=== PATIENT | female | born 1955 | race Caucasian/White ===

== ENCOUNTER → 2017-05-04 | Outpatient (CLI) | payer OTHER ==
[2017-05-04 08:32] LABS: ADD MAN DIFF? NO
[2017-05-04 08:41] LABS: BASO # 0.2 x10^3/uL (0.0-0.2); BASO % 2 % (0-3); EOS % 4 % (0-3); HEMOGLOBIN 14.3 g/dL (12.0-15.5); LYMPH % 28 % (24-48); MEAN CORPUSCULAR HEMOGLOBIN 31 pg (25-35); MEAN CORPUSCULAR HGB CONC 33 g/dL (31-37); MEAN CORPUSCULAR VOLUME 92 fL (79-100); MONO % 9 % (0-9); NEUT % 57 % (31-73); PLATELET COUNT 321 x10^3/uL (140-400); RED BLOOD COUNT 4.69 x10^6/uL (3.50-5.40); RED CELL DISTRIBUTION WIDTH 13.6 % (11.5-14.5); WHITE BLOOD COUNT 7.2 x10^3/uL (4.0-11.0)
[2017-05-04 08:42] LABS: BILIRUBIN,URINE NEGATIVE (NEG); GLUCOSE,URINE NEGATIVE (NEG); NITRITE,URINE NEGATIVE (NEG); PROTEIN,URINE NEGATIVE (NEG-TRACE)
[2017-05-04 09:00] LABS: SQUAMOUS EPITHELIAL CELL,UR FEW /LPF
[2017-05-04 09:01] LABS: BACTERIA,URINE FEW /HPF (0-FEW); RBC,URINE 0 /HPF (0-2); WBC,URINE OCC /HPF (0-4)
[2017-05-04 09:02] LABS: ALBUMIN 3.8 g/dL (3.4-5.0); ALK PHOS 83 U/L (46-116); ALT (SGPT) 30 U/L (14-59); ANION GAP 4 (6-14); AST (SGOT) 19 U/L (15-37); BLOOD UREA NITROGEN 13 mg/dL (7-20); BUN/CREATININE RATIO 22 (6-20); CALCIUM 9.2 mg/dL (8.5-10.1); CARBON DIOXIDE 33 mmol/L (21-32); CHLORIDE 103 mmol/L (98-107); CHOLESTEROL 208 mg/dL (0-200); CREATININE 0.6 mg/dL (0.6-1.0); GFR 101.6; GLUCOSE 94 mg/dL (70-99); HDLC 57 mg/dL (40-60); NON-HDL CHOLESTEROL 151 mg/dL (0-129); POTASSIUM 4.2 mmol/L (3.5-5.1); SODIUM 140 mmol/L (136-145); TOTAL BILIRUBIN 0.3 mg/dL (0.2-1.0); TOTAL PROTEIN 7.5 g/dL (6.4-8.2); TRIGLYCERIDES 89 mg/dL (0-150)
[2017-05-04 09:04] LABS: CHOLESTEROL/HDL RATIO 3.6
== END | disposition home or self-care (01) ==
LOC: LAB 07:59
DX: Z00.00 Encounter for general adult medical examination without abnormal findings (principal); R53.83 Other fatigue; Z11.59 Encounter for screening for other viral diseases
CPT/HCPCS: 36415; 80053; 80061; 81001; 84439; 84443; 85025; 86803

== ENCOUNTER → 2017-06-01 | Outpatient (CLI) | payer OTHER | END | disposition home or self-care (01) | LOC: SPEC 10:42 | DX: D48.5 Neoplasm of uncertain behavior of skin (principal) | CPT/HCPCS: 88304; 88305 ==

== ENCOUNTER → 2017-07-01 | Outpatient (CLI) | payer OTHER ==
[2017-07-01 12:50] LABS: FREE T4 1.21 ng/dL (0.76-1.46)
== END | disposition home or self-care (01) ==
LOC: LAB 11:34
DX: E03.9 Hypothyroidism, unspecified (principal)
CPT/HCPCS: 36415; 84439; 84443

== ENCOUNTER → 2017-08-11 | Outpatient (CLI) | payer OTHER | END | disposition home or self-care (01) | LOC: MAMMO 12:57 | DX: Z12.31 Encounter for screening mammogram for malignant neoplasm of breast (principal) | CPT/HCPCS: 77063; 77067 ==

== ENCOUNTER 2018-01-09 08:31 | Emergency (ER) | payer OTHER ==
[2018-01-09 09:06] LABS: ADD MAN DIFF? NO
[2018-01-09 09:13] LABS: BILIRUBIN,URINE NEGATIVE (NEG); CLARITY,URINE CLEAR; COLOR,URINE YELLOW; GLUCOSE,URINE NEGATIVE (NEG); NITRITE,URINE NEGATIVE (NEG); PROTEIN,URINE NEGATIVE (NEG-TRACE)
[2018-01-09 09:14] LABS: BASO # 0.1 x10^3/uL (0.0-0.2); BASO % 1 % (0-3); EOS # 0.2 x10^3/uL (0.0-0.7); EOS % 3 % (0-3); HEMATOCRIT 41.7 % (36.0-47.0); HEMOGLOBIN 14.1 g/dL (12.0-15.5); LYMPH # 1.6 x10^3/uL (1.0-4.8); LYMPH % 22 % (24-48); MEAN CORPUSCULAR HEMOGLOBIN 31 pg (25-35); MEAN CORPUSCULAR HGB CONC 34 g/dL (31-37); MEAN CORPUSCULAR VOLUME 91 fL (79-100); MONO # 0.7 x10^3/uL (0.0-1.1); MONO % 9 % (0-9); NEUT # 4.8 x10^3uL (1.8-7.7); NEUT % 65 % (31-73); PLATELET COUNT 276 x10^3/uL (140-400); RED BLOOD COUNT 4.56 x10^6/uL (3.50-5.40); RED CELL DISTRIBUTION WIDTH 13.6 % (11.5-14.5); WHITE BLOOD COUNT 7.4 x10^3/uL (4.0-11.0)
[2018-01-09 09:21] LABS: ANION GAP 7 (6-14); BLOOD UREA NITROGEN 22 mg/dL (7-20); CALCIUM 8.9 mg/dL (8.5-10.1); CARBON DIOXIDE 30 mmol/L (21-32); CHLORIDE 103 mmol/L (98-107); CREATININE 0.6 mg/dL (0.6-1.0); GFR 101.3; GLUCOSE 86 mg/dL (70-99); POTASSIUM 4.2 mmol/L (3.5-5.1); SODIUM 140 mmol/L (136-145)
[2018-01-09 09:26] LABS: BACTERIA,URINE FEW /HPF (0-FEW); RBC,URINE OCC /HPF (0-2); SQUAMOUS EPITHELIAL CELL,UR FEW /LPF
[2018-01-09 09:27] LABS: ALBUMIN 3.9 g/dL (3.4-5.0); ALK PHOS 86 U/L (46-116); ALT (SGPT) 30 U/L (14-59); AST (SGOT) 19 U/L (15-37); DIRECT BILIRUBIN 0.1 mg/dL (0.0-0.2); LIPASE 107 U/L (73-393); TOTAL BILIRUBIN 0.5 mg/dL (0.2-1.0); TOTAL PROTEIN 7.4 g/dL (6.4-8.2)
[2018-01-09] MEDS ORDERED: CONTRAST GIVEN. MC (09:45)
[2018-01-09] MEDS: IOHEXOL 300 MG/ML 100ML VIAL. IV (10:13)
== END 2018-01-09 11:03 | disposition home or self-care (01) ==
LOC: ER 08:31
DX: R10.11 Right upper quadrant pain (principal); J45.909 Unspecified asthma, uncomplicated; Z90.49 Acquired absence of other specified parts of digestive tract; Z90.710 Acquired absence of both cervix and uterus; Z88.0 Allergy status to penicillin; Z88.1 Allergy status to other antibiotic agents; Z91.040 Latex allergy status; Z88.8 Allergy status to other drugs, medicaments and biological substances
CPT/HCPCS: 36415; 74177; 76705; 80048; 80076; 81001; 83690; 85025; 87086; 99285-25; Q9967

== ENCOUNTER → 2018-08-15 | Outpatient (CLI) | payer OTHER ==
[2018-01-09 10:30] VITALS: BP 134/77
[~2018-08-15] MED LIST: ALBU2.5V8 IH; ATOR20TA58 PO; CA C1TAB63 PO; CELE200C PO; CHOL500016 PO; DICL100G18 TP; ESCITALOPRAM OX10 MG PO; FLUT1DIS3 IH; GABA-585 PO; GABA300C18 PO; GABA600T PO; HYDR-3164 PO; LORA10TA68 PO; MULT-245 PO; OMEG1CAP6 PO; OXYB10TA PO; OXYC1TAB8 PO; PHEN37.53 PO; TIZA4TAB PO
[2018-08-15 09:11] LABS: HEMATOCRIT 42.5 % (36.0-47.0); HEMOGLOBIN 14.1 g/dL (12.0-15.5); RED BLOOD COUNT 4.64 x10^6/uL (3.50-5.40); RED CELL DISTRIBUTION WIDTH 13.7 % (11.5-14.5); WHITE BLOOD COUNT 7.2 x10^3/uL (4.0-11.0)
[2018-08-15 09:34] LABS: ALBUMIN 3.6 g/dL (3.4-5.0); CALCIUM 9.1 mg/dL (8.5-10.1); CREATININE 0.6 mg/dL (0.6-1.0); GFR 101.3; POTASSIUM 4.1 mmol/L (3.5-5.1); TOTAL BILIRUBIN 0.3 mg/dL (0.2-1.0); TOTAL PROTEIN 7.3 g/dL (6.4-8.2)
[2018-08-15 09:37] LABS: CHOLESTEROL/HDL RATIO 3.8
[2018-08-15 09:40] LABS: FREE T4 1.13 ng/dL (0.76-1.46); THYROID STIM HORMONE (TSH) 3.513 uIU/mL (0.358-3.74)
== END | disposition home or self-care (01) ==
LOC: LAB 08:03
PROVIDERS: ATTEND Nurse Practitioner Family
DX: Z13.228 Encounter for screening for other metabolic disorders (principal); E03.9 Hypothyroidism, unspecified
CPT/HCPCS: 36415; 80053; 80061; 82306; 82607; 82746; 84439; 84443; 85027

== ENCOUNTER 2019-06-12 10:13 | Emergency (ER) | payer OTHER ==
[~2019-06-12] VITALS: Ht 175.3 cm; Wt 140.6 kg
[~2019-06-12 10:13] MED LIST changes: -OXYB10TA PO; +OXYB10TA2 PO; -TIZA4TAB PO; +TIZA4TAB2 PO
[2019-06-12] MEDS ORDERED: IPRATRPIUM/ALBUTEROL 0.5/2.5MG 3 ML NEBU. ONE (10:31)
[2019-06-12] MEDS ORDERED: methylPREDNISolone SOD SUCC PF 125 MG/2 ML VIAL. IM ONE (10:45)
[2019-06-12] MEDS ORDERED: IPRATRPIUM/ALBUTEROL 0.5/2.5MG 3 ML NEBU. NEB ONE (10:45)
[2019-06-12 11:13] VITALS: BP 169/81
--- NOTE | 2019-06-12 11:21 | RAD ---
EXAM: CHEST 2 VIEWS. HISTORY: Cough, asthma. COMPARISON: 06/01/2016. FINDINGS: Frontal and lateral views of the chest are obtained. Linear opacities in the left base are chronic and likely represents scarring. There are no confluent infiltrates. There is no pneumothorax or pleural effusion. The heart is not enlarged. IMPRESSION: 1. Stable left basilar scarring. No confluent infiltrates. Electronically signed by: Melissa Salmeron MD (06/12/2019 11:18 AM) [facility]
[2019-06-12 11:27] LABS: INFLUENZA A PATIENT NEGATIVE (NEGATIVE); INFLUENZA B PATIENT NEGATIVE (NEGATIVE)
--- NOTE | 2019-06-12 11:54 | PHYS DOC ---
Past Medical History Past Medical History: Arthritis, Asthma, Other Additional Past Medical Histor: neuropathy L leg Past Surgical History: Appendectomy, Hysterectomy, Tonsillectomy, Other Additional Past Surgical Histo: back surgeries x 3 Alcohol Use: None Drug Use: None Adult General Chief Complaint Chief Complaint: ASTHMA HPI HPI Patient is a 63 year old female with history of asthma who presents to the ED today complaining of cough, shortness of breath and wheezing, symptoms began 10 days ago. Patient was seen by the PCP last week, was started on breathing treatments and tapered dose of prednisone which she is still on and azithromycin. She states yesterday she is feeling better, she states today she woke up in her symptoms had worsened. Denies any fever. Review of Systems Review of Systems Constitutional: Denies fever or chills [] Eyes: Denies change in visual acuity, redness, or eye pain [] HENT: Denies nasal congestion or sore throat [] Respiratory: Reports cough, wheezing and shortness of breath [] Cardiovascular: No additional information not addressed in HPI [] GI: Denies abdominal pain, nausea, vomiting, bloody stools or diarrhea [] : Denies dysuria or hematuria [] Musculoskeletal: Denies back pain or joint pain [] Integument: Denies rash or skin lesions [] Neurologic: Denies headache, focal weakness or sensory changes [] All other systems were reviewed and found to be within normal limits, except as documented in this note. Current Medications Current Medications Current Medications Medications (Trade) Dose Ordered Sig/Bryan Start Time Stop Time Status Last Admin Dose Admin Albuterol/ Ipratropium (Duoneb) 3 ml 1X ONCE 06/12/19 10:45 06/12/19 10:46 DC Methylprednisolone Sodium Succinate (SOLU-Medrol 125MG VIAL) 125 mg 1X ONCE 06/12/19 10:45 06/12/19 10:46 DC 06/12/19 11:21 125 MG Allergies Allergies Allergies Coded Allergies Type Severity Reaction Last Updated Verified latex Allergy Severe anaphylaxis 11/23/14 Yes Cephalosporins Allergy Intermediate hives 11/23/14 Yes Penicillins Allergy Intermediate HIVES 11/23/14 Yes chlorhexidine Allergy Intermediate rash blistering 01/04/15 Yes Physical Exam Physical Exam Constitutional: Well developed, well nourished, no acute distress, non-toxic appearance. [] HENT: Normocephalic, atraumatic, bilateral external ears normal, oropharynx moist, no oral exudates, nose normal. [] Eyes: PERRLA, EOMI, conjunctiva normal, no discharge. [] Neck: Normal range of motion, no tenderness, supple, no stridor. [] Cardiovascular:Heart rate regular rhythm, no murmur [] Lungs & Thorax: Tight chest, limited air movement. Abdomen: Bowel sounds normal, soft, no tenderness, no masses, no pulsatile masses. [] Skin: Warm, dry, no erythema, no rash. [] Back: No tenderness, no CVA tenderness. [] Extremities: No tenderness, no cyanosis, no clubbing, ROM intact, no edema. [] Neurologic: Alert and oriented X 3, normal motor function, normal sensory function, no focal deficits noted. [] Psychologic: Affect normal, judgement normal, mood normal. [] Current Patient Data Vital Signs Vital Signs Date Time Temp Pulse Resp B/P (MAP) Pulse Ox O2 Delivery O2 Flow Rate FiO2 06/12/19 11:13 98.5 88 16 169/81 (110) 95 Room Air 98.5 Lab Values Laboratory Tests Test 06/12/19 10:38 Influenza Type A Antigen Negative (NEGATIVE) Influenza Type B Antigen Negative (NEGATIVE) EKG EKG [] Radiology/Procedures Radiology/Procedures []PROCEDURE: CHEST PA & LATERAL EXAM: CHEST 2 VIEWS. HISTORY: Cough, asthma. COMPARISON: 06/01/2016. FINDINGS: Frontal and lateral views of the chest are obtained. Linear opacities in the left base are chronic and likely represents scarring. There are no confluent infiltrates. There is no pneumothorax or pleural effusion. The heart is not enlarged. IMPRESSION: 1. Stable left basilar scarring. No confluent infiltrates. Electronically signed by: Melissa Salmeron MD (06/12/2019 11:18 AM) [facility] DICTATED and SIGNED BY: MICHELLE SALMERON MD DATE: 06/12/19 1119 Course & Med Decision Making Course & Med Decision Making Pertinent Labs and Imaging studies reviewed. (See chart for details) This is a 63-year-old female patient presenting to the ED today with cough, shortness of breath, wheezing for 10 days. She is already been seen by the PCP, currently on tapered dose of prednisone and breathing treatments. She completed azithromycin a couple days ago. Chest x-ray interpreted by radiologist as negative for any acute findings. Negative influenza A or B. Patient was given a DuoNeb treatment in the ED as well as Solu-Medrol IM. She reports she is feeling better. She was discharged to home. Encouraged to continue taking the tapered dose of prednisone as well as breathing treatments. O2 sats 95% of room air. Provided return precautions and discharged in stable condition. Dragon Disclaimer Dragon Disclaimer This electronic medical record was generated, in whole or in part, using a voice recognition dictation system. Departure Departure Impression: Primary Impression: Asthma exacerbation Disposition: HOME, SELF-CARE Condition: STABLE Referrals: RED RAHMAN APRN (PCP) follow up with your doctor in 1-2 weeks Patient Instructions: Asthma, Adult, [id number] Additional Instructions: You were seen for asthma exacerbation. Continue using breathing treatments at home as well as taking the tapered dose of prednisone until you complete it. Follow-up with your own doctor in the course of next week. Please come back to the ED at any point symptoms worsen. Scripts Albuterol Sulfate (ALBUTEROL SULFATE NEB SOLN) 1.25 Mg/3 Ml Vial.neb 1 VIAL NEB Q4HRS, #150 ML Prov: BENNY AMEZCUA APRN 06/12/19 Problem Qualifiers Primary Impression: Asthma exacerbation Asthma severity: mild Asthma persistence: intermittent Qualified Codes: J45.21 - Mild intermittent asthma with (acute) exacerbation BENNY AMEZCUA APRN Jun 12, 2019 11:54
[2019-06-12] MEDS ORDERED: ALBU1.25 NEB (12:05)
== END 2019-06-12 12:09 | disposition home or self-care (01) ==
LOC: ER 10:13
DX: J45.21 Mild intermittent asthma with (acute) exacerbation (principal); M19.90 Unspecified osteoarthritis, unspecified site; G90.09 Other idiopathic peripheral autonomic neuropathy; Z90.89 Acquired absence of other organs; Z90.710 Acquired absence of both cervix and uterus; Z88.0 Allergy status to penicillin; Z91.040 Latex allergy status; Z88.1 Allergy status to other antibiotic agents; Z88.2 Allergy status to sulfonamides
CPT/HCPCS: 71046; 87804; 94640; 96372; 99285; J2930

== ENCOUNTER → 2019-08-03 | Outpatient (CLI) | payer OTHER ==
[~2019-08-03] MED LIST changes: +ALBU1.25 NEB; -OXYB10TA2 PO; +OXYB10TA26 PO
--- NOTE | 2019-08-03 15:52 | RAD ---
PA and lateral chest x-ray compared to similar exam dated June 122018 for asthma exacerbation. FINDINGS: There is a fine indistinct reticular appearance of the pulmonary markings without any areas of focal consolidation. This finding is subtle and nonspecific but can be seen with viral or atypical infectious pneumonitis, hypersensitivity pneumonitis, or less likely early noncardiogenic pleural edema. No pneumothorax is identified. Heart size is borderline enlarged but stable. No significant osseous abnormalities. IMPRESSION: 1. Fine indistinct reticular appearance of interstitial markings which is nonspecific but can be seen with viral or atypical infectious pneumonitis, hypersensitivity pneumonitis, or early noncardiogenic pulmonary edema. No secondary signs of cardiogenic edema are present, an infectious or inflammatory etiologies are most suspected. Electronically signed by: Dion Aragon MD (08/03/2019 3:49 PM) [id number]
== END | disposition home or self-care (01) ==
LOC: RAD 11:27
PROVIDERS: ATTEND Nurse Practitioner Family
DX: J45.901 Unspecified asthma with (acute) exacerbation (principal)
CPT/HCPCS: 71046

== ENCOUNTER → 2019-08-22 | Outpatient (CLI) | payer OTHER ==
[2019-08-22 11:07] LABS: BASO # 0.1 x10^3/uL (0.0-0.2); BASO % 1 % (0-3); EOS # 0.3 x10^3/uL (0.0-0.7); EOS % 3 % (0-3); HEMATOCRIT 42.3 % (36.0-47.0); HEMOGLOBIN 14.3 g/dL (12.0-15.5); LYMPH # 2.1 x10^3/uL (1.0-4.8); LYMPH % 26 % (24-48); MEAN CORPUSCULAR HEMOGLOBIN 31 pg (25-35); MEAN CORPUSCULAR HGB CONC 34 g/dL (31-37); MEAN CORPUSCULAR VOLUME 91 fL (79-100); MONO # 0.7 x10^3/uL (0.0-1.1); MONO % 9 % (0-9); NEUT # 4.8 x10^3/uL (1.8-7.7); NEUT % 61 % (31-73); PLATELET COUNT 337 x10^3/uL (140-400); RED BLOOD COUNT 4.66 x10^6/uL (3.50-5.40); RED CELL DISTRIBUTION WIDTH 14.3 % (11.5-14.5)
--- NOTE | 2019-08-22 16:18 | RAD ---
Chest CT without contrast - High-resolution study Clinical indications: Abnormal chest x-ray. TECHNIQUE: Noncontrast high-resolution CT scanning of the chest was performed. PQRS compliance Statement One or more of the following individualized dose reduction techniques were utilized for this study: 1. Automated exposure control 2. Adjustment of the mA and/or kV according to patient size 3. Use of iterative reconstruction technique COMPARISON: No previous chest CT available. FINDINGS: No abnormally enlarged thoracic lymphadenopathy is seen. Heart size is at the upper limits of normal. No pericardial effusion is seen. No focal aneurysmal dilatation of the thoracic aorta is seen. No adrenal mass is evident. Mild interstitial and nodular lung infiltrates are seen with a centrilobular distribution more so within the lower lung zones. There are some mild groundglass lung infiltrates present which may represent atelectasis. On the expiration portion out of the study, there is scattered areas of air-trapping again more prominently seen within the lower lung zones. Constellation of findings are consistent with distal airway infectious or inflammatory disease. No lung mass or lung consolidation with air bronchograms is seen. The proximal bronchial tree is patent. No bronchovascular beading is seen. No pleural effusion or pneumothorax is seen. No lytic process is seen. IMPRESSION: Mild interstitial and nodular lung infiltrates with a centrilobular distribution and lower lung zone predominance consistent with distal airway inflammatory or infectious disease. No lung mass or lung consolidation is evident. Electronically signed by: Celio Burleson MD (08/22/2019 4:15 PM) [facility] [place]
== END | disposition home or self-care (01) ==
LOC: CT 10:39
PROVIDERS: ATTEND Internal Medicine Pulmonary Disease
DX: R91.8 Other nonspecific abnormal finding of lung field (principal); J45.998 Other asthma
CPT/HCPCS: 71250; 82784; 85025

== ENCOUNTER → 2019-12-15 | Outpatient (CLI) | payer OTHER ==
[~2019-12-15] MED LIST changes: -DICL100G18 TP; +DICL100G54 TP
[2019-12-15 09:35] LABS: HEMATOCRIT 42.6 % (36.0-47.0); HEMOGLOBIN 14.6 g/dL (12.0-15.5); RED BLOOD COUNT 4.75 x10^6/uL (3.50-5.40); RED CELL DISTRIBUTION WIDTH 13.6 % (11.5-14.5); WHITE BLOOD COUNT 7.8 x10^3/uL (4.0-11.0)
[2019-12-15 09:58] LABS: ALBUMIN 3.9 g/dL (3.4-5.0); ALBUMIN/GLOBULIN RATIO 1.1 (1.0-1.7); CALCIUM 9.1 mg/dL (8.5-10.1); CREATININE 0.9 mg/dL (0.6-1.0); POTASSIUM 4.2 mmol/L (3.5-5.1); TOTAL BILIRUBIN 0.5 mg/dL (0.2-1.0); TOTAL PROTEIN 7.6 g/dL (6.4-8.2)
[2019-12-15 09:59] LABS: CHOLESTEROL/HDL RATIO 4.4
[2019-12-15 10:08] LABS: FREE T4 1.19 ng/dL (0.76-1.46); THYROID STIM HORMONE (TSH) 3.726 uIU/mL (0.358-3.74)
== END | disposition home or self-care (01) ==
LOC: LAB 07:59
PROVIDERS: ATTEND Nurse Practitioner Family
DX: E55.9 Vitamin D deficiency, unspecified (principal); E03.9 Hypothyroidism, unspecified; R60.9 Edema, unspecified
CPT/HCPCS: 36415; 80053; 80061; 82306; 83540; 83550; 84439; 84443; 85027

== ENCOUNTER → 2020-02-09 | Outpatient (CLI) | payer OTHER ==
--- NOTE | 2020-02-12 18:07 | RAD ---
MR#: [id number] Date of Study: 02/09/2020 Ordering Physician: BEATA BAUTISTA, Referring Physician: BEATA BAUTISTA, Tech: Viola Kahn RDMS, MARIA ANTONIA, RTR APPROVED REPORT Patient Location : OUT-PATIENT Indications Lower Extremity Edema : Bilateral Deep System Deep Venous Thrombosis present : No Greater Saphenous Veins (GSV) Significant venous relux noted in the LEFT GSV at the following levels : Superficial Femoral Junction , Proximal Thigh, Mid Thigh, Distal Thigh, Proximal Calf, Mid Calf, Distal Calf Findings Bilateral greater saphenous veins did not reveal any obvious evidence of thrombus. The right great s aphenous vein measures 5.7 mm and has no evidence of reflux. The left great saphenous vein measures 6.2 mm and has a maximum reflux time of 3.3 seconds. Bilateral lesser saphenous veins were not well visualized. Grossly no reflux in the bilateral lesser saphenous veins. Critical Notification Critical Value: No <Conclusion> 1. Positive for reflux in the left GSV. Signed by : Max Yadav, Electronically Approved : 02/12/2020 18:06:32
--- NOTE | 2020-02-12 18:08 | RAD ---
MR#: [id number] Date of Study: 02/09/2020 Ordering Physician: BEATA BAUTISTA, Referring Physician: BEATA BAUTISTA, Tech: Viola Kahn, TRISTA, RVT, RTR APPROVED REPORT Bilateral Lower Extremity Venous Study for DVT Patient Location: OUT-PATIENT Indications Lower Extremity Edema: Bilateral Findings Technically this is a very difficult study due to patient's body habitus. Grossly no obvious common femoral vein DVT. The bilateral superficial femoral veins are notable for normal color Doppler flow. Compressibility is difficult to visualize. Bilateral popliteal veins aga in do not demonstrate any flow disturbance but compressibility again is difficult to visualize. Bila teral below knee veins were not well visualized but grossly no evidence of DVT Critical Notification Critical Value: No <Conclusion> 1. Technically very difficult study, grossly no evidence of DVT. Signed by : Max Yadav, Electronically Approved : 02/12/2020 18:08:14
== END | disposition home or self-care (01) ==
LOC: US 12:41
PROVIDERS: ATTEND Internal Medicine Cardiovascular Disease
DX: R60.9 Edema, unspecified (principal)
CPT/HCPCS: 93970

== ENCOUNTER → 2020-02-27 | Outpatient (CLI) | payer OTHER ==
--- NOTE | 2020-02-27 18:29 | CARD ---
MR#: [id number] Date of Study: 02/27/2020 Ordering Physician: BEATA BAUTISTA, Referring Physician: BEATA BAUTISTA, Tech: Viola He APPROVED REPORT EXAM: Two-dimensional and M-mode echocardiogram with Doppler and color Doppler. Other Information Quality : AverageHR: 73bpm Technically limited study due to body habitus. INDICATION Edema 2D DIMENSIONS RVDd3.7 (2.9-3.5cm)Left Atrium(2D)4.3 (1.6-4.0cm) IVSd1.0 (0.7-1.1cm)Aortic Root(2D)3.2 (2.0-3.7cm) LVDd5.8 (3.9-5.9cm)LVOT Diameter2.1 (1.8-2.4cm) PWd1.4 (0.7-1.1cm)LVDs3.8 (2.5-4.0cm) FS (%) 34.5 %SV104.7 ml LVEF(%)62.8 (>50%) Aortic Valve AoV Peak Jerod.133.9cm/sAoV VTI30.8cm AO Peak GR.7.2mmHgLVOT Peak Jerod.108.5cm/s LVOT VTI 21.75cmAO Mean GR.4mmHg JB (VMAX)1.96fu2YWU (VTI)2.35cm2 Mitral Valve MV E Ggiutufu84.2cm/sMV DECEL CFSF318sz MV A Qgkduats00.7cm/sMV E Mean Gr.1mmHg MV ILO94oiG/A Ratio1.0 MVA (PHT)2.43cm2 TDI E/Lateral E'7.1E/Medial E'7.2 Pulmonary Valve PV Peak Iuzxhhlt620.2cm/sPV Peak Grad.4mmHg Tricuspid Valve TR P. Gvtgaqwa018mh/sRAP [id number] TR Peak Gr.67okPfWXFS95svRf Pulmonary Vein S1 Kylaomok58.2cm/sD2 Kavinvcx64.7cm/s PVa [id number] LEFT VENTRICLE The Left Ventricle is mildly dilated. There is mild to moderate concentric left ventricular hypertrop hy. The left ventricular systolic function is normal. EF 55% There is normal LV segmental wall motion . Transmitral Doppler flow pattern is Grade II-pseudonormal filling dynamics. RIGHT VENTRICLE The right ventricle is normal size. There is normal right ventricular wall thickness. The right ventr icular systolic function is normal. ATRIA The left atrium is borderline dilated. The right atrium size is normal. The interatrial septum is int act with no evidence for an atrial septal defect or patent foramen ovale as noted on 2-D or Doppler i maging. AORTIC VALVE The aortic valve is normal in structure and function. Doppler and Color Flow revealed no significant aortic regurgitation. There is no significant aortic valvular stenosis. Calculated aortic valve area is 2.45 cm2 with maximum pressure gradient of 8 mmHg and mean pressure gradient of 5 mmHg. MITRAL VALVE The mitral valve is normal in structure and function. There is no evidence of mitral valve prolapse. There is no mitral valve stenosis with an mean gradient of 1.4 mmHg. Doppler and Color-flow revealed trace mitral regurgitation. TRICUSPID VALVE The tricuspid valve is normal in structure and function. Doppler and Color Flow revealed trace tricus pid regurgitation with an estimated PAP of 36 mmHg. There is no tricuspid valve prolapse or vegetatio n. PULMONIC VALVE The pulmonic valve is not well visualized. Doppler and Color Flow revealed trace pulmonic valvular re gurgitation. There is no pulmonic valvular stenosis. GREAT VESSELS The aortic root is normal in size. The IVC is normal in size and collapses >50% with inspiration. PERICARDIAL EFFUSION There is no evidence of significant pericardial effusion. Critical Notification Critical Value: No <Conclusion> The left ventricular systolic function is normal. EF 55% There is normal LV segmental wall motion. Signed by : Max Yadav, Electronically Approved : 02/27/2020 18:29:30
== END | disposition home or self-care (01) ==
LOC: ECHO 14:03
PROVIDERS: ATTEND Internal Medicine Cardiovascular Disease
DX: I51.7 Cardiomegaly (principal); R60.9 Edema, unspecified
CPT/HCPCS: 93306

== ENCOUNTER 2020-06-14 15:54 | Emergency (ER) | payer OTHER ==
[~2020-06-14] VITALS: Ht 175.3 cm; Wt 136.0 kg
[2020-06-14 16:01] VITALS: BP 154/65
[2020-06-14] MEDS: DIPH,PERTUSS(ACELL),TET VAC/PF 0.5 ML SYRINGE. VAX IM ONE (16:36)
[2020-06-14] MEDS: LIDOCAINE WITH 8.4% SOD BICARB 3 ML DISP.SYRIN. INJ ONE (16:37)
[2020-06-14] MEDS ORDERED: SULF1TAB24 PO (17:32)
--- NOTE | 2020-06-14 17:33 | PHYS DOC ---
Past Medical History Past Medical History: Arthritis, Asthma, Other Additional Past Medical Histor: neuropathy L leg Past Surgical History: Appendectomy, Hysterectomy, Tonsillectomy, Other Additional Past Surgical Histo: back surgeries x 3 Smoking Status: Never Smoker Alcohol Use: None Drug Use: None General Adult EDM: Chief Complaint: LACERATION/AVULSION HPI: HPI: Patient is a 64 year old female who presents to the ED today with left index finger laceration that occurred while using a pair of scissors to cut back. Patient is right-handed. Review of Systems: Review of Systems: Constitutional: Denies fever or chills. [] Musculoskeletal: Denies back pain or joint pain. [] Integument: Reports left index finger laceration Neurologic: Denies headache, focal weakness or sensory changes. [] Psychiatric: Denies depression or anxiety. [] Heart Score: Risk Factors: Risk Factors: DM, Current or recent (<one month) smoker, HTN, HLP, family history of CAD, obesity. Risk Scores: Score 0 - 3: 2.5% MACE over next 6 weeks - Discharge Home Score 4 - 6: 20.3% MACE over next 6 weeks - Admit for Clinical Observation Score 7 - 10: 72.7% MACE over next 6 weeks - Early Invasive Strategies Current Medications: Current Medications Medications (Trade) Dose Ordered Sig/Bryan Start Time Stop Time Status Last Admin Dose Admin Diphtheria/ Tetanus/Acell Pertussis (ADACEL TDap SYRINGE) 0.5 ml ONCE ONCE 06/14/20 16:30 06/14/20 16:31 DC 06/14/20 16:36 0.5 ML Lidocaine HCl (Buffered Lidocaine 1%) 3 ml 1X ONCE 06/14/20 16:30 06/14/20 16:31 DC 06/14/20 16:37 3 ML Allergies: Allergies: Allergies Coded Allergies Type Severity Reaction Last Updated Verified latex Allergy Severe anaphylaxis 11/23/14 Yes Cephalosporins Allergy Intermediate hives 11/23/14 Yes Penicillins Allergy Intermediate HIVES 11/23/14 Yes chlorhexidine Allergy Intermediate rash blistering 01/04/15 Yes Physical Exam: PE: Constitutional: Well developed, well nourished, no acute distress, non-toxic appearance. [] Skin: Left index finger middle phalanx dorsal aspect with a laceration approximately 3 cm long, there is no obvious tendon involvement. Patient able to flex and extend the finger with no difficulties. Adequate radial sensation to the left index finger. +2 left radial pulse. Cap refill less than 2 seconds to left index finger Back: No tenderness, no CVA tenderness. [] Extremities: No tenderness, no cyanosis, no clubbing, ROM intact, no edema. [] Neurologic: Alert and oriented X 3, normal motor function, normal sensory function, no focal deficits noted. [] Psychologic: Affect normal, judgement normal, mood normal. [] Current Patient Data: Vital Signs: Vital Signs Date Time Temp Pulse Resp B/P (MAP) Pulse Ox O2 Delivery O2 Flow Rate FiO2 06/14/20 16:01 97.6 98 12 154/65 (94) 96 Room Air 97.6 EKG: EKG: [] Radiology/Procedures: Radiology/Procedures: Laceration/Wound Repair Wound Location: Left index finger Wound's Depth, Shape: slant Wound Length (cm): approx. 3 cm, Wound Explored: clean Irrigated w/ Saline (ccs): 70 Betadine Prep?: Y Anesthesia: 1% of buffered lidocaine Volume Anesthetic (ccs): Approximately 2.5 cc Wound Repaired With: Ethilon Suture Size/Type: 5.0/interrupted sutures Number of Sutures: 8 Progress : Wound was covered with nonstick dressing Course & Med Decision Making: Course & Med Decision Making Pertinent Labs and Imaging studies reviewed. (See chart for details) [] Dragon Disclaimer: Dragon Disclaimer: This electronic medical record was generated, in whole or in part, using a voice recognition dictation system. Departure Departure Impression: Primary Impression: Laceration of left index finger Qualified Codes: S61.211A - Laceration without foreign body of left index finger without damage to nail, initial encounter Disposition: 01 DC HOME SELF CARE/HOMELESS Condition: STABLE Referrals: RED RAHMAN APRN (PCP) Follow-up with your doctor or the emergency room in 7 to 10 days for stitches removal Patient Instructions: Fingertip Laceration Additional Instructions: You have left index finger laceration that was closed with stitches. You can shower and wash the area starting tomorrow. You can remove the dressing and leave it open to air in 24 hrs if is not draining or bleeding. Apply Neosporin to the area twice a day. Monitor the area for any signs of infection including but not limited to increased redness, warmth, yellow drainage from the area or any other concerning symptoms and come back to the ED. Please complete the antibiotics prescribed. Follow-up with your own doctor or the emergency room in 7 to 10 days for stitches removal Scripts Sulfamethoxazole/Trimethoprim (BACTRIM DS TABLET) 1 Each Tablet 1 TAB PO BID for 7 Days, #14 TAB 0 Refills Prov: BENNY AMEZCUA APRN 06/14/20 BENNY AMEZCUA APRN Jun 14, 2020 17:33
== END 2020-06-14 17:38 | disposition home or self-care (01) ==
LOC: ER 15:54
DX: S61.211A Laceration without foreign body of left index finger without damage to nail, initial encounter (principal); M19.90 Unspecified osteoarthritis, unspecified site; Z90.89 Acquired absence of other organs; J45.909 Unspecified asthma, uncomplicated; Z90.710 Acquired absence of both cervix and uterus; Z98.890 Other specified postprocedural states; Z91.040 Latex allergy status; Z88.0 Allergy status to penicillin; Z88.8 Allergy status to other drugs, medicaments and biological substances; W27.2XXA Contact with scissors, initial encounter; Y93.89 Activity, other specified; Y92.89 Other specified places as the place of occurrence of the external cause; Y99.8 Other external cause status
CPT/HCPCS: 12002; 90471; 90715; 99283; J3490

== ENCOUNTER 2020-11-17 12:46 | Emergency (ER) | payer OTHER ==
[~2020-11-17] VITALS: Ht 177.8 cm; Wt 136.0 kg
[~2020-11-17 12:46] MED LIST changes: +SULF1TAB24 PO
[2020-11-17 14:00] VITALS: BP 142/87
--- NOTE | 2020-11-17 15:11 | RAD ---
Study: XR LT WRIST 3VIEWS Indication: Wrist pain. Fall. Comparison: None. Findings: No acute fracture is identified. No traumatic malalignment with the scapholunate interval within norm al limits. Severe arthrosis at the thumb CMC joint. Mild arthrosis at the triscaphe joint. Impression: 1. No displaced fracture or traumatic malalignment. 2. Severe thumb CMC arthrosis. Electronically signed by: GRAHAM FUNEZ MD (11/17/2020 3:09 PM) [facility]
--- NOTE | 2020-11-17 15:13 | RAD ---
Study: XR KNEE 3 VIEWS_RT Indication: Right knee pain. Fall. Comparison: 05/21/2017 Findings: No acute fracture or large knee joint effusion. Tricompartmental osteophyte formation. Moderate media l compartment joint space narrowing. Mild soft tissue prominence at the anterior knee. Impression: 1. No acute fracture or traumatic malalignment. 2. Mild soft tissue prominence at the anterior knee is nonspecific but could represent contusion in t he appropriate clinical setting. 3. Tricompartmental osteoarthrosis with moderate medial femorotibial compartment joint space narrowin g. Electronically signed by: GRAHAM FUNEZ MD (11/17/2020 3:11 PM) [facility]
--- NOTE | 2020-11-17 15:57 | RAD ---
STUDY: 1. CT head without contrast 2. CT maxillofacial without contrast 3. CT cervical spine without contrast INDICATION: Fall. Trauma to the head. COMPARISON: None. TECHNIQUE: Axial CT imaging of the head, maxillofacial structures and cervical spine performed withou t the use of intravenous contrast. Sagittal and coronal reformats were obtained. One or more of the following individualized dose reduction techniques were utilized for this examinat ion: 1. Automated exposure control 2. Adjustment of the mA and/or kV according to patient size 3. Use of iterative reconstruction technique. FINDINGS: CT HEAD: No acute intracranial hemorrhage. Small area of increased density along the anterior falx is not typi john of blood products. No localized mass effect, midline shift or hydrocephalus. White matter findings which could be on account of mild chronic microvascular ischemic change. Intrac ranial calcific atherosclerosis. Brain parenchymal volume is within normal limits for patient age. No depressed calvarial fracture. CT MAXILLOFACIAL: Slight leftward angulation of the nasal bone complex but without a discrete fracture. Chronic nasal s eptal deviation to the right. The orbital rims are intact. Intact maxilla and mandible. Favored mild physiologic anterior positioning of the right mandibular condyle relative to the mandibular fossa. Symmetric positioning of the globes. No retrobulbar hematoma no soft tissue abnormality seen at the d eep spaces of the neck or along the pharynx. No hemorrhage within the paranasal sinuses. Normally aer ated mastoid air cells. CT CERVICAL SPINE: Mildly hindered assessment below C4 due to beam attenuation on account of patient body habitus. No acute fracture is identified or traumatic malalignment. Advanced multilevel spondylosis. Osseous n eural foraminal stenosis greatest on the left at C5-C6. There is a component of central canal narrowi ng at C5-C6 and C6-C7 but this does not appear to be severe noting incomplete characterization by CT. Mild carotid calcific atherosclerosis. No thyroid nodule. No apical pneumothorax. IMPRESSION: CT HEAD: 1. No acute intracranial abnormality by CT. CT MAXILLOFACIAL: 1. Minimal leftward deviation of the nasal bone complex but this may be chronic. No facial bone frac ture is identified. CT CERVICAL SPINE: 1. Partially degraded study on account of patient body habitus below the C4 level. 2. Taking the above into consideration, no acute fracture. No traumatic malalignment. 3. Multilevel cervical spondylosis greatest at C5-C6 and C6-C7 without evidence for severe central c anal narrowing. Electronically signed by: GRAHAM FUNEZ MD (11/17/2020 3:54 PM) [facility]
--- NOTE | 2020-11-17 16:06 | ED.ADGEN ---
Past Medical History Past Medical History: Arthritis, Asthma, Other Additional Past Medical Histor: neuropathy L leg Past Surgical History: Appendectomy, Hysterectomy, Tonsillectomy, Other Additional Past Surgical Histo: back surgeries x 3 Smoking Status: Never Smoker Alcohol Use: None Drug Use: None General Adult EDM: Chief Complaint: MECHANICAL FALL HPI: HPI: Patient is a 65 year old female, accompanied by her , who presents emergency department with complaints of left wrist, right knee, and head pain after tripping and falling while walking this morning around 10:00. Patient states she was walking outside on concrete when she did not see some bolts around the concrete and she hit them with her sandal tripped and fell. Patient states she fell forward and hit her face on the ground. She also complains of nasal swelling and tenderness, she denies any nasal bleeding. Patient denies any loss of consciousness, neck pain, back pain, nausea, vomiting, shortness of breath, chest pain, palpitations, vision changes, dizziness, or syncope. She reports that when she got home she took 2 pain pills that she had at home that have helped to reduce her pain. She currently rates her pain a 5 out of 10 on pain scale, she denies any alleviating factors, the pain is worse with palpation and sore areas. Review of Systems: Review of Systems: Complete ROS is negative unless otherwise noted in HPI. Allergies: Allergies: Allergies Coded Allergies Type Severity Reaction Last Updated Verified latex Allergy Severe anaphylaxis 11/23/14 Yes Cephalosporins Allergy Intermediate hives 11/23/14 Yes Penicillins Allergy Intermediate HIVES 11/23/14 Yes chlorhexidine Allergy Intermediate rash blistering 01/04/15 Yes Physical Exam: PE: See Above Constitutional: Well developed, well nourished, no acute distress, non-toxic appearance, obese. [] HENT: Normocephalic, bilateral external ears normal; 1+ edema tenderness to the to the superior nose, no active bleeding Eyes: PERRLA, EOMI, conjunctiva normal, no discharge. [] Neck: Normal range of motion, supple, nontender, no stridor. [] Cardiovascular:Heart rate regular rhythm Lungs & Thorax: Respirations even and unlabored, no retractions, no respiratory distress Abdomen: soft, no tenderness Back, nontender Skin: Warm, dry, no erythema, no rash. [] Extremities: Left wrist: Lateral tenderness to palpation without crepitus or obvious deformity, no cyanosis, ROM intact,1+ edema Right knee: Anterior TTP without crepitus or obvious deformity, no cyanosis, ROM intact, 1+ edema. [] Neurologic: Alert and oriented X 3, normal motor, normal sensory, no focal deficits noted. [] Psychologic: Affect normal, judgement normal, mood normal. [] Current Patient Data: Vital Signs: Vital Signs Date Time Temp Pulse Resp B/P (MAP) Pulse Ox O2 Delivery O2 Flow Rate FiO2 11/17/20 14:00 98.3 82 18 142/87 (105) 98 Room Air 98.3 EKG: EKG: [] Heart Score: C/O Chest Pain: No Risk Scores: Score 0 - 3: 2.5% MACE over next 6 weeks - Discharge Home Score 4 - 6: 20.3% MACE over next 6 weeks - Admit for Clinical Observation Score 7 - 10: 72.7% MACE over next 6 weeks - Early Invasive Strategies Radiology/Procedures: Radiology/Procedures: REASON: pain in R knee after fall PROCEDURE: KNEE RIGHT 3V Study: XR KNEE 3 VIEWS_RT Indication: Right knee pain. Fall. Comparison: 05/21/2017 Findings: No acute fracture or large knee joint effusion. Tricompartmental osteophyte formation. Moderate medial compartment joint space narrowing. Mild soft tissue prominence at the anterior knee. Impression: 1. No acute fracture or traumatic malalignment. 2. Mild soft tissue prominence at the anterior knee is nonspecific but could represent contusion in the appropriate clinical setting. 3. 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 Fall. Comparison: None. Findings: No acute fracture is identified. No traumatic malalignment with the scapholunate interval within normal limits. Severe arthrosis at the thumb CMC joint. Mild arthrosis at the triscaphe joint. Impression: 1. No displaced fracture or traumatic malalignment. 2. Severe thumb CMC arthrosis. PROCEDURE: CT HEAD AND MAXILLOFACIAL WO STUDY: 1. CT head without contrast 2. CT maxillofacial without contrast 3. CT cervical spine without contrast INDICATION: Fall. Trauma to the head. COMPARISON: None. TECHNIQUE: Axial CT imaging of the head, maxillofacial structures and cervical spine performed without the use of intravenous contrast. Sagittal and coronal re formats were obtained. One or more of the following individualized dose reduction techniques were utilized for this examination: 1. Automated exposure control 2. Adjustment of the mA and/or kV according to patient size 3. Use of iterative reconstruction technique. FINDINGS: CT HEAD: No acute intracranial hemorrhage. Small area of increased density along the anterior falx is not typical of blood products. No localized mass effect, midline shift or hydrocephalus. White matter findings which could be on account of mild chronic microvascular ischemic change. Intracranial calcific atherosclerosis. Brain parenchymal volume is within normal limits for patient age. No depressed calvarial fracture. CT MAXILLOFACIAL: Slight leftward angulation of the nasal bone complex but without a discrete fracture. Chronic nasal septal deviation to the right. The orbital rims are intact. Intact maxilla and mandible. Favored mild physiologic anterior positioning of the right mandibular condyle relative to the mandibular fossa. Symmetric positioning of the globes. No retrobulbar hematoma no soft tissue abnormality seen at the deep spaces of the neck or along the pharynx. No hemorrhage within the paranasal sinuses. Normally aerated mastoid air cells. CT CERVICAL SPINE: Mildly hindered assessment below C4 due to beam attenuation on account of patient body habitus. No acute fracture is identified or traumatic malalignment. Advanced multilevel spondylosis. Osseous neural foraminal stenosis greatest on the left at C5-C6. There is a component of central canal narrowing at C5-C6 and C6-C7 but this does not appear to be severe noting incomplete characterization by CT. Mild carotid calcific atherosclerosis. No thyroid nodule. No apical pneumothorax. IMPRESSION: CT HEAD: 1. No acute intracranial abnormality by CT. CT MAXILLOFACIAL: 1. Minimal leftward deviation of the nasal bone complex but this may be chronic. No facial bone fracture is identified. CT CERVICAL SPINE: 1. Partially degraded study on account of patient body habitus below the C4 level. 2. Taking the above into consideration, no acute fracture. No traumatic malalignment. 3. Multilevel cervical spondylosis greatest at C5-C6 and C6-C7 without evidence for severe central canal narrowing. Electronically signed by: GRAHAM FUNEZ MD (11/17/2020 3:54 PM) [facility] Course & Med Decision Making: Course & Med Decision Making Pertinent Labs and Imaging studies reviewed. (See chart for details) [] Dragon Disclaimer: Dariel Disclaimer: This electronic medical record was generated, in whole or in part, using a voice recognition dictation system. Departure Departure Impression: Primary Impression: Acute pain of left wrist Additional Impressions: Right anterior knee pain Fall from slip, trip, or stumble Closed head injury without loss of consciousness Swelling of nose Disposition: 01 HOME / SELF CARE / HOMELESS Condition: STABLE Referrals: RED RAHMAN APRN (PCP) RICK COKER DO Patient Instructions: Facial or Scalp Contusion, [id number], Head Injury, Adult, [id number], Knee Pain, [id number], Wrist Pain, [id number] Additional Instructions: Continue taking your home pain medication as directed. Recommend application of ice, elevation, and rest of affected extremities. Follow-up with orthopedics for further evaluation of your wrist pain, wear the splint that was placed until follow up appointment with Dr. Coker. Follow the head injury precautions provided. Follow up with your primary care doctor in 1-2 days. Return to the ER if symptoms worsen or fever develops. Problem Qualifiers Additional Impressions: Fall from slip, trip, or stumble Encounter type: initial encounter Qualified Codes: W01.0XXA - Fall on same level from slipping, tripping and stumbling without subsequent striking against object, initial encounter Closed head injury without loss of consciousness Encounter type: initial encounter Qualified Codes: S09.90XA - Unspecified injury of head, initial encounter ARTURO ENGLE APRN November 17, 2020 16:06
== END 2020-11-17 16:25 | disposition home or self-care (01) ==
LOC: ER 12:46
DX: S09.90XA Unspecified injury of head, initial encounter (principal); M25.532 Pain in left wrist; M25.561 Pain in right knee; J34.89 Other specified disorders of nose and nasal sinuses; M54.2 Cervicalgia; J45.909 Unspecified asthma, uncomplicated; Z88.0 Allergy status to penicillin; Z91.040 Latex allergy status; Z88.1 Allergy status to other antibiotic agents; Z88.8 Allergy status to other drugs, medicaments and biological substances; W01.0XXA Fall on same level from slipping, tripping and stumbling without subsequent striking against object, initial encounter; Y93.01 Activity, walking, marching and hiking; Y92.89 Other specified places as the place of occurrence of the external cause; Y99.8 Other external cause status
CPT/HCPCS: 29125; 70450; 70486; 72125; 73120; 73562; 99285-25

== ENCOUNTER → 2021-02-14 | Outpatient (CLI) | payer OTHER | LOC: LAB 13:47 | PROVIDERS: ATTEND Internal Medicine Pulmonary Disease | DX: Z20.822 Contact with and (suspected) exposure to COVID-19 (principal) | CPT/HCPCS: U0003; U0005 ==

== ENCOUNTER → 2021-02-21 | Outpatient (CLI) | payer OTHER | LOC: LAB 07:39 | PROVIDERS: ATTEND Internal Medicine Pulmonary Disease | DX: Z20.822 Contact with and (suspected) exposure to COVID-19 (principal) | CPT/HCPCS: U0003; U0005 ==

== ENCOUNTER → 2021-04-28 | Outpatient (CLI) | payer OTHER ==
[~2021-04-28] MED LIST changes: +TIZA-75 PO; -TIZA4TAB2 PO
[2021-04-28 09:20] LABS: BASO # 0.1 x10^3/uL (0.0-0.2); BASO % 1 % (0-3); EOS # 0.3 x10^3/uL (0.0-0.7); EOS % 4 % (0-3); HEMATOCRIT 40.6 % (36.0-47.0); HEMOGLOBIN 13.8 g/dL (12.0-15.5); LYMPH % 27 % (24-48); MEAN CORPUSCULAR HEMOGLOBIN 31 pg (25-35); MEAN CORPUSCULAR HGB CONC 34 g/dL (31-37); MEAN CORPUSCULAR VOLUME 91 fL (79-100); MONO # 0.7 x10^3/uL (0.0-1.1); MONO % 10 % (0-9); NEUT # 4.4 x10^3/uL (1.8-7.7); NEUT % 58 % (31-73); PLATELET COUNT 288 x10^3/uL (140-400); RED BLOOD COUNT 4.46 x10^6/uL (3.50-5.40); RED CELL DISTRIBUTION WIDTH 13.5 % (11.5-14.5); WHITE BLOOD COUNT 7.5 x10^3/uL (4.0-11.0)
[2021-04-28 09:30] LABS: ALBUMIN 3.7 g/dL (3.4-5.0); CREATININE 0.7 mg/dL (0.6-1.0); POTASSIUM 4.2 mmol/L (3.5-5.1); TOTAL BILIRUBIN 0.3 mg/dL (0.2-1.0); TOTAL PROTEIN 7.3 g/dL (6.4-8.2)
[2021-04-28 09:32] LABS: CHOLESTEROL/HDL RATIO 4.2
[2021-04-28 09:37] LABS: FREE T4 1.06 ng/dL (0.76-1.46); THYROID STIM HORMONE (TSH) 3.788 uIU/mL (0.358-3.74)
== END ==
LOC: LAB 08:20
PROVIDERS: ATTEND Nurse Practitioner Family
DX: Z13.9 Encounter for screening, unspecified (principal); E03.9 Hypothyroidism, unspecified; E55.9 Vitamin D deficiency, unspecified
CPT/HCPCS: 36415; 80053; 80061; 82306; 84439; 84443; 85025

== ENCOUNTER → 2021-06-04 | Outpatient (CLI) | payer OTHER ==
--- NOTE | 2021-06-04 17:38 | RAD ---
Bilateral digital screening 2-D and 3-D (digital breast tomosynthesis) mammogram: Reason for examination: Routine screening. Comparison: Mammogram from 08/11/2017. Interpretation was made with the benefit of CAD. FINDINGS: Breast density: Category B. There are scattered areas of fibroglandular density. No suspicious breast mass, malignant appearing calcifications, or architectural distortion is seen. T here is a 1.3 cm group of punctate calcifications in the 3:00 region of the right breast at posterior depth, approximately 12 cm from the nipple. This has not increased significantly in size since 2018 consistent with benign calcifications. IMPRESSION: No evidence of malignancy. Assessment: BI-RADS 2. Benign findings. Recommendation: Routine screening mammograms. The patient will receive a letter with the results in the mail. Patient information will be entered i nto the mammography reminder system with a target recall date for the next mammogram. A reminder ron er will be generated. Electronically signed by: Katrin Cochran MD (06/04/2021 5:35 PM) [id number]
== END ==
LOC: MAMMO 10:40
PROVIDERS: ATTEND Nurse Practitioner Family
DX: Z12.31 Encounter for screening mammogram for malignant neoplasm of breast (principal)
CPT/HCPCS: 77063; 77067

== ENCOUNTER → 2021-07-18 | Outpatient (CLI) | payer OTHER ==
--- NOTE | 2021-07-18 13:36 | RAD ---
EXAM: Pelvis and bilateral hips, 3 views. HISTORY: Pain. COMPARISON: None. FINDINGS: A frontal view of the pelvis and frog-leg views of both hips are obtained. There is no frac ture, dislocation or subluxation. The femoral heads are normal in configuration and seated properly. There is minimal bilateral femoral head marginal spurring. There is degenerative and postoperative ch fredo involving the lower lumbar spine. IMPRESSION: Minimal bilateral hip osteoarthritis. No acute osseous finding. Electronically signed by: Keren Lobato MD (07/18/2021 1:34 PM) [id number]
== END ==
LOC: RAD 11:45
PROVIDERS: ATTEND Nurse Practitioner Family
DX: M16.0 Bilateral primary osteoarthritis of hip (principal)
CPT/HCPCS: 73521